=== PATIENT | male | born 1945 | race Caucasian/White ===

== ENCOUNTER 2016-09-26 23:45 | Inpatient (IN) | payer MEDICARE ==
--- NOTE | ~2016-09-26 | DS ---
Discharge Summary [facility] [address] [place]. [address] NAME: LAINE GORDILLO : 43 STATUS : DIS IN PAT#: [id number] AGE: 70 ADM/REG DATE : 09/27/16 MR#: [id number] REPORT SERV DATE: 10/02/16 DICTATED BY: NADINE GOODE DATE: 10/02/16 REPORT STATUS : Draft TRANSCRIBED BY: MODL DATE: 10/02/16 ADMISSION DATE: 09/27/2016 DISCHARGE DATE: 10/02/2016 DIAGNOSES ON DISCHARGE: 1. Hepatic encephalopathy, present on admission, resolved. 2. Alcoholic cirrhosis with jaundice, currently stable. 3. Hyponatremia, resolved. 4. Acute kidney injury, present on admission, resolved. 5. Urinary tract infection, treated. 6. Chronically elevated bilirubin secondary to liver cirrhosis, liver disease. 7. Thrombocytopenia secondary to liver cirrhosis. 8. Supratherapeutic INR secondary to liver disease. 9. Over-suppressed hypothyroidism. Dose of Synthroid decreased, needs to check TSH in four weeks per Dr. Taylor. 10.Urinary tract infection, treated. CONSULTANTS ON THE CASE: Dr. Corbin. HOSPITAL COURSE: The patient was admitted by Dr. Alvarado on 09/27/2016. Subsequently was seen by nurse practitioner, Markie Fitch. Please see the interim discharge summary dictated by Markie Fitch on 10/01/2016. I saw the patient on the last on the day of discharge, and I spoke with Dr. Corbin by phone as well as with his nurse practitioner, who saw the patient also today. They recommended the patient to be discharged today and they said that he will have outpatient HIDA scan as well as he recommended the patient to be on Demadex and spironolactone and also because of his elevated INR secondary to liver failure, he recommended to give one dose of vitamin K today. Overall, the patient does not have any bleeding. He had low alpha-fetoprotein and his hepatitis panel was negative. The patient was recommended to avoid nonsteroid anti- inflammatories, to avoid Tylenol. He was recommended to be on a low sodium 2 g diet with 60 g of protein, and he was also recommended to have reports analyst consultation, which was also done while he was inpatient. The patient had appointment scheduled with Dr. Corbin in four weeks as well as he needs to see Dr. Taylor next week. He needs to check his TSH in four weeks per Dr. Tyalor since we decreased his Synthroid dose because his TSH was over- suppressed. DISCHARGE MEDICATIONS: Carvedilol 3.125 p.o. b.i.d.; levothyroxine, dose decreased to 150 mcg a day; lactulose 30 mL p.o. daily, prescription was given; magnesium oxide 800 p.o. daily. The patient was recommended to discontinue pravastatin by Dr. Corbin. I personally discussed with him about it and Dr. Corbin recommended to stop pravastatin because of liver disease. Spironolactone 50 mg a day. The patient was recommended to take Demadex 20 mg daily, and Lasix was discontinued as well as potassium was discontinued. Continue Robitussin q.4 hours p.r.n. Imodium as needed for diarrhea. The patient does not have diarrhea anymore. Meclizine 12.5 p.o. three times daily p.r.n. Eyedrops to be continued as at home. The patient was discharged in stable condition. Prescription was given for Discharge Summary [address] [address] NAME: LAINE GORDILLO : 43 STATUS : DIS IN PAT#: [id number] AGE: 70 ADM/REG DATE : 09/27/16 MR#: [id number] REPORT SERV DATE: 10/02/16 DICTATED BY: NADINE GOODE DATE: 10/02/16 REPORT STATUS : Draft TRANSCRIBED BY: MODL DATE: 10/02/16 Demadex, spironolactone, and lactulose. The patient was discharged in stable condition. I spent 45 minutes on discharge. DICTATED BY: Rudolph Smith/ROXANNA Nadine Goode M.D. / [id number] CC: Rudolph Smith M.D. Alan Shikoh, M.D.
--- NOTE | ~2016-09-26 | HP ---
History And Physical [place] [address] [facility] [place]. [address] NAME: LAINE GORDILLO : 43 STATUS : ADM IN [facility]#: [id number] AGE: 70 ADM/REG DATE : 09/27/16 MR#: [id number] REPORT SERV DATE: 09/27/16 DICTATED BY: ALESHIA LUI DATE: 09/27/16 REPORT STATUS : Draft TRANSCRIBED BY: MODL DATE: 09/27/16 DATE OF ADMISSION: 09/27/2016 CHIEF COMPLAINT: A 70-year-old male with underlying cirrhosis, now presenting with lethargy, confusion, and diarrhea. HISTORY OF PRESENT ILLNESS: The patient's history was obtained through an interview with the patient, , and son, coupled with review of [facility] medical records. The patient states he started to "feel bad" on about September 22. Over the last weekend, he has been staying in bed and then this week, he has become increasingly incoherent, lethargic, and overtly confused at times. He has been uncoordinated with his arms, unsteady in his gait, and just complains of having lack of energy. He feels "weak all over." His only pain complaint has been a soreness in his lower back without radiation, a 4/10 severity, although he also has had some soreness milder in his legs with attempts to ambulate. No abdominal pain. No chest pain. No headache. He does admit to recent onset of diarrhea, maybe four or five bowel movements a day. He does not recall having recent antibiotics. About two weeks ago, he was diagnosed with a "cold." He had sinus drainage, nonproductive cough, but these seemed to have improved. He has no current shortness of breath or chest pain. No fevers, no chills. He also has noticed difficulty with urination. He notices a foul urine odor, dysuria, urinary frequency, and loss of urine continence at times. REVIEW OF SYSTEMS: Otherwise, a 14-point review of systems was obtained and was negative. PAST MEDICAL HISTORY: 1. Cirrhosis thought to be from fatty liver disease and alcoholism (he has quit alcohol two years ago). 2. Obstructive sleep apnea, on CPAP. 3. Portal vein thrombus(?). 4. Varices, seen by Dr. Corbin. 5. Hypothyroidism. 6. Splenomegaly. 7. Systolic congestive heart failure. Ejection fraction 45% in 2003. PAST SURGICAL HISTORY: Right knee surgery. ALLERGIES: CODEINE. History And Physical [address] [place]. [address] NAME: LAINE GORDILLO : 43 STATUS : ADM IN [facility]#: [id number] AGE: 70 ADM/REG DATE : 09/27/16 MR#: [id number] REPORT SERV DATE: 09/27/16 DICTATED BY: ALESHIA LUI DATE: 09/27/16 REPORT STATUS : Draft TRANSCRIBED BY: ROXANNA DATE: 09/27/16 SOCIAL HISTORY: He is . He has one son. Quit alcohol 2 years ago. He still smokes cigarettes. 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 FAMILY HISTORY: Father with CABG. No family history of cirrhosis known. CURRENT MEDICATIONS: Include Coreg 3.125 mg p.o. b.i.d., Lasix 40 mg p.o. b.i.d., guaifenesin, Synthroid 200 mcg p.o. daily, loperamide, magnesium, meclizine, eyedrops, potassium 20 mEq p.o. b.i.d., Pravachol 20 mg p.o. daily, Aldactone 25 mg p.o. b.i.d. PHYSICAL EXAMINATION: VITAL SIGNS: Temperature 99.2, pulse 83, blood pressure 99/54, respiratory rate 22, O2 saturation 88% on room air. GENERAL: A pleasant, cooperative male. He does seem lethargic and a bit confused but when questioned, he is oriented x3 and seems to be aware of his recent history. HEENT: Pupils equal, round, and reactive to light. No conjunctival pallor. No scleral icterus. Nares are patent. Oropharynx is clear of obstruction. Dry mucous membranes. NECK: Trachea midline. No thyromegaly. LYMPH: No cervical lymphadenopathy. No supraclavicular lymphadenopathy. RESPIRATORY: Clear to auscultation at bases. No wheezes, no rales, no rhonchi. A normal respiratory effort. CARDIOVASCULAR: Regular rate and rhythm. No murmurs, rubs, or gallops. The patient does have chronic appearing lower extremity edema but it is currently nonpitting and symmetrical. ABDOMEN: Distended by exam. I do not appreciate a fluid wave though. It is nontender throughout. It seems that the patient has a palpable spleen in the left upper quadrant that is nontender. No hepatomegaly though is appreciated by exam. DERMATOLOGICAL: The patient has a kind of pallor to his skin and kind of grayish discoloration as well. There are no cyanotic changes. He has cool, dry extremities. PSYCHIATRIC: A flat affect, but he claims to be in a good mood although sometimes he is very slow in his responses and lethargic. He is oriented x3. LABORATORY DATA: Ammonia level 55, lactic acid 3.5, albumin 1.6, AST 82, ALT 38, alkaline phosphatase 114, total bilirubin 8.7. White blood cell count 11.3, hemoglobin 11, hematocrit 30, platelets 52, MCV 118. Sodium 129, potassium 6.1, chloride 102, bicarb 20, BUN 30, creatinine 1.73 from baseline creatinine of 0.86, glucose 116. Urinalysis does show large leukocyte esterase, greater than 182 white blood cells, 14 hyaline casts, and also some granular casts. STUDIES: 1. Chest x-ray by my own evaluation shows shallow inspiratory effort. Mild atelectasis, but no acute abnormality. 2. EKG by my own evaluation shows sinus rhythm, intraventricular conduction defect. No spiked or elevated T-waves. Overall, the EKG is stable compared to February 2016. 3. A CT scan of the abdomen and pelvis shows splenomegaly, cholelithiasis, cirrhosis, chronic portal vein thrombosis. 4. A CT scan of the brain without contrast shows no acute intracranial process. History And Physical [address] [address] NAME: LAINE GORDILLO : 43 STATUS : ADM IN [facility]#: [id number] AGE: 70 ADM/REG DATE : 09/27/16 MR#: [id number] REPORT SERV DATE: 09/27/16 DICTATED BY: ALESHIA LUI DATE: 09/27/16 REPORT STATUS : Draft TRANSCRIBED BY: MODAna Rosa DATE: 09/27/16 ASSESSMENT AND PLAN: 1. Hepatic encephalopathy. Try lactulose. 2. Urinary tract infection. Check urine culture. Placed on IV antibiotics. 3. Diarrhea. Check C. difficile toxin. Start empiric p.o. Vancocin. 4. Acute kidney injury. Placed on IV fluids, IV albumin. 5. Lactic acidosis. Provide supportive care. Monitor closely. 6. Cirrhosis thought to be from fatty liver disease and alcoholism. He has been abstinent from alcohol for two years, but there is also a question of chronic portal vein thrombosis(?). 7. Obstructive sleep apnea, on CPAP. KPL/MODL Aleshia Lui M.D. / [id number] CC: MD Micheal Otero M.D.
--- NOTE | ~2016-09-26 | IDS ---
Interim Discharge Summary [facility] [address] [place]. [address] NAME: LAINE GORDILLO : 43 STATUS : ADM IN [facility]#: [id number] AGE: 70 ADM/REG DATE : 09/27/16 MR#: [id number] REPORT SERV DATE: 10/02/16 DICTATED BY: MARKIE LEDESMA DATE: 10/01/16 REPORT STATUS : Draft TRANSCRIBED BY: MODL DATE: 10/01/16 ADMISSION DATE: 09/27/2016 DISCHARGE DATE: CURRENT INTERIM DIAGNOSES: List includes: 1. Hepatic encephalopathy with jaundice related to alcoholic cirrhosis. 2. Hyponatremia, resolving. 3. Acute kidney injury, resolved. 4. Urinary tract infection, Escherichia coli, treated, off antibiotics now. 5. Elevated bilirubin, most recently 10.5. 6. Thrombocytopenia. 7. Anemia. 8. Supratherapeutic INR. 9. Hypothyroidism, most recent TSH is 0.065. Synthroid dosage was decreased during this admission. HISTORY OF PRESENT ILLNESS: This is a 70-year-old male, who presented with lethargy, confusion, and diarrhea. Please see initial H and P of Dr. Eduard Alvarado. This patient was admitted to the Hospitalist Service for further evaluation and treatment. Lab work was ordered and followed. He was started on lactulose for elevated ammonia. Empiric Vancocin was also started, as the patient was having diarrhea and he was also placed on empiric antibiotic therapy initially for urinary tract infection. PROCEDURES AND IMAGING DURING THIS ADMISSION: Include a CT of the abdomen and pelvis that showed liver cirrhosis pattern, extensive varices about the spleen, lower thoracic, esophagus, and GE junction. Cholelithiasis with mild diffuse gallbladder wall thickening and surrounding ascites. Diverticulosis, but no diverticulitis. CT of the brain showing no acute pathology. An echocardiogram showed an ejection fraction of 40% with some mild mitral regurg and mild tricuspid regurg. CONTINUATION OF HOSPITAL COURSE: I began seeing the patient on 09/27/2016, where his kidney function had begun to improve with creatinine falling from 1.73 to 1.49. He was continued on IV antibiotics of Rocephin. His hyponatremia had begun to resolve. His hyperkalemia had began to resolve as well, and his Synthroid dosage was adjusted on this date with the TSH being low. His ammonia labs were followed closely with adjustments in his lactulose during this admission. The urinary culture came back showing E coli, and he was placed on Levaquin, which he has completed. He had the above-described imaging that was reviewed. After his acute kidney injury resolved, he was placed back on Demadex diuretic given the fact that his albumin is quite low at 1.9 and he does have lower extremity edema. He has tolerated this well. His diarrhea has slowed and is manageable, and he is continued on his lactulose again with following ammonia levels. In review, his bilirubin has been quite elevated during this admission and has continued to slowly climb. A consult was placed to GI for review and further recommendations, and Dr. Corbin saw the patient and added spironolactone, hepatitis panel, and we will follow up with him as outpatient. Does not feel like a HIDA scan at this time is warranted. Of note, the patient has been relatively asymptomatic despite being quite jaundiced and the bilirubin elevation, but he has not had Interim Discharge Summary [address] [address] NAME: LAINE GORDILLO : 43 STATUS : ADM IN PAT#: [id number] AGE: 70 ADM/REG DATE : 09/27/16 MR#: [id number] REPORT SERV DATE: 10/02/16 DICTATED BY: MARKIE LEDESMA DATE: 10/01/16 REPORT STATUS : Draft TRANSCRIBED BY: MODL DATE: 10/01/16 any significant abdominal pain, nausea, vomiting, and has been eating and drinking. [facility] and likely will be able to be discharged on 10/02/2016 at this point, and appreciate the strategic solutions consultant's help with Dr. Corbin in particular in this case. [facility] – ADA/MODL Markie Ledesma NP / [id number] CC: MD Micheal Otero M.D.
--- NOTE | ~2016-09-26 | CN ---
Consultation Report [facility] [address] [place]. [address] NAME: LAINE GORDILLO : 43 STATUS : ADM IN PAT#: [id number] AGE: 70 ADM/REG DATE : 09/27/16 MR#: [id number] REPORT SERV DATE: 10/01/16 DICTATED BY: DOM PALAFOX DATE: 09/30/16 REPORT STATUS : Draft TRANSCRIBED BY: MODAna Rosa DATE: 09/30/16 DATE OF CONSULTATION: 09/30/2016 HISTORY OF PRESENT ILLNESS: I am asked to see this gentleman in the absence of Dr. Corbin for jaundice. This 70-year-old gentleman apparently has a history of cirrhosis secondary to alcohol and fatty liver. Recent complaints have included increasing weakness and fatigue, as well as diarrhea. He denies any severe abdominal pain, nausea, vomiting, or blood in the stool. Family reports that his gait has been unsteady and he has been complaining of weakness and fatigue. He denies chills or fever. REVIEW OF SYSTEMS: GENERAL: Otherwise negative except for urinary frequency. MEDICATIONS: Include Coreg, Lasix, Synthroid, Imodium, Pravachol, and Aldactone. PHYSICAL EXAMINATION: VITAL SIGNS: Afebrile with normal vital signs. CHEST: Clear. CARDIAC: Regular rhythm without rubs or murmurs. ABDOMEN: Soft with minimal tenderness. Bowel sounds normal. No palpable masses. LABORATORY DATA: Lab work has shown total bilirubin of 8.7. White count is normal at 11.3. MCV 118. Platelets 52,000. Potassium 6.1. BUN 30, creatinine 1.73. CT of the abdomen has shown splenomegaly, cirrhosis, and chronic portal vein thrombosis. CT of the head is unremarkable. IMPRESSION: 1. Hepatic encephalopathy, likely causes would be urinary tract infection. White cells greater than 182 per urinalysis. He is being treated for this. 2. History of cirrhosis. 3. Diarrhea. He has already been started on vancomycin. PLAN: We will check alpha-fetoprotein level. Dr. Corbin will follow in the next 24 hours. Thank you for allowing me to see this gentleman. CATHY/ROXANNA Dom Palafox M.D. Consultation Report [address] [place]. [address] NAME: LAINE GORDILLO : 43 STATUS : ADM IN PAT#: [id number] AGE: 70 ADM/REG DATE : 09/27/16 MR#: [id number] REPORT SERV DATE: 10/01/16 DICTATED BY: DOM PALAFOX DATE: 09/30/16 REPORT STATUS : Draft TRANSCRIBED BY: ROXANNA DATE: 09/30/16 / [id number] CC: MD Micheal Otero M.D.
[~2016-09-26 23:45] MED LIST: ASA5GR PO; ASAB PO; COR20 PO; COREG3 PO; KLOR-CON20 MEQ PO; L40 PO; LEVOTHYROXIN200 MCG PO; PCET PO; PRAVAC PO; PRILOSEC40 MG PO; SPIRO25 PO; SYN125 PO; SYNTHROID200 MCG PO
[2016-09-27 01:28] LABS: BASOPHILS 0.3 %; BASOPHILS ABSOLUTE 0.03 10/3/uL (0.0-0.16); EOSINOPHILS 0.4 %; EOSINOPHILS ABSOLUTE 0.04 10/3/uL (0.0-0.53); ER CBC TAT 0 Hrs 09 Mins; HEMATOCRIT 30.1 % (40.0-51.0); HEMOGLOBIN 10.6 g/dL (13.6-17.8); IMMATURE GRANULOCYTES 0.5 %; IMMATURE GRANULOCYTES ABSOLUTE 0.06 10/3/uL (0.0-0.11); LYMPHOCYTES 5.1 %; LYMPHOCYTES ABSOLUTE 0.58 10/3/uL (0.67-4.30); MANUAL DIFF NO %; MEAN CORPUS HGB CONC 35.2 g/dL (32.0-36.0); MEAN CORPUSCULAR HEMOGLOB 41.6 pg (26.0-34.0); MEAN PLATELET VOLUME 10.7 fL (9.2-13.0); MONOCYTES 14.8 %; MONOCYTES ABSOLUTE 1.68 10/3/uL (0.21-1.20); NEUTROPHILS 78.9 %; NEUTROPHILS ABSOLUTE 8.93 10/3/uL (2.02-8.40); PLATELET COUNT 52 10/3/uL (150-400); RBC DISTRIBUTION WIDTH 16.4 % (12.0-16.0); RED CELL COUNT 2.55 10/6/uL (4.7-6.1); WHITE BLOOD CELLS 11.3 10/3/uL (4.5-10.5)
[2016-09-27 01:33] LABS: INTERNATIONAL NORMAL RATI 2.8 UNITS (-); PARTIAL THROMBO TIME 46.8 SEC (22.5-37.2)
[2016-09-27 01:39] LABS: PROTIME (NOT ORD) 29.6 SEC (12.0-14.5)
[2016-09-27 01:42] LABS: LACTATE 3.5 MMOL/L (0.3-2.4)
[2016-09-27 01:47] LABS: A/G RATIO 0.3 (0.7-1.9); ALBUMIN 1.6 G/DL (3.5-5.0); CALCIUM, SERUM 7.9 MG/DL (8.5-10.4); CHLORIDE, SERUM 102 MMOL/L (96-112); CO2 (CARBON DIOXIDE) 20 MMOL/L (24-34); GLOBULIN 4.7 G/DL (2.5-4.1); SGPT(ALT) 38 U/L (5-65); TOTAL PROTEIN 6.3 G/DL (6.0-8.5)
[2016-09-27 01:49] LABS: SODIUM, SERUM 129 MMOL/L (135-148)
[2016-09-27 01:50] LABS: ALKALINE PHOSPHATASE 114 U/L (45-117); BUN (BLOOD UREA NITROGEN) 30 MG/DL (6-23); CREATININE 1.73 MG/DL (0.70-1.30); GFR AFRICAN AMERICAN 45 ML/MIN (>=60); GFR NON AFRICAN AMERICAN 39 ML/MIN (>=60); GLUCOSE, SERUM 116 MG/DL (60-99); POTASSIUM, SERUM 6.1 MMOL/L (3.5-5.3); SGOT(AST) 82 U/L (5-40); TOTAL BILIRUBIN 8.7 MG/DL (0-1.2); ULTRASENSITIVE TSH 0.079 MCIU/ML (0.358-3.740)
[2016-09-27 01:57] LABS: PLATELET ESTIMATE DEC (ADEQUATE)
[2016-09-27 01:59] LABS: POLYCHROMASIA 1+ (2-5/OIF) (0-1/OIF)
[2016-09-27 02:00] LABS: ASCORBIC ACID (UR NOT ORDER) NEG (NEG); BILIRUBIN, URINE MODERATE (NEG); ER URINALYSIS TAT 0 Hrs 16 Mins; KETONE, URINE NEGATIVE (NEG); LEUKOCYTE ESTERASE(NOT OR MOD (NEG); NITRITE (URINE) NEG (NEG)
[2016-09-27 02:01] LABS: WBC (NOT ORDERED) (RFLEX) > 182 (0-5)
[2016-09-27] MEDS ORDERED: L40 PO (02:40)
[2016-09-27] MEDS ORDERED: SPIRO25 PO (02:40)
[2016-09-27] MEDS ORDERED: KDUR20 PO (02:40)
[2016-09-27] MEDS ORDERED: ILEVRO1.7 ML OPH (02:41)
[2016-09-27] MEDS ORDERED: IMOD PO (02:42)
[2016-09-27] MEDS ORDERED: SYNTHROID200 MCG PO (02:42)
[2016-09-27] MEDS ORDERED: COREG3 PO (02:42)
[2016-09-27] MEDS ORDERED: GGDM5ML PO (02:42)
[2016-09-27] MEDS ORDERED: BESIFLOXACIN 0.6% OPH (02:42)
[2016-09-27] MEDS ORDERED: PRAVAC PO (02:43)
[2016-09-27] MEDS ORDERED: MCZ125 PO (02:43)
[2016-09-27] MEDS ORDERED: MAGOX4 PO (02:44)
[2016-09-27 14:39] LABS: HEMOGLOBIN 9.5 g/dL (13.6-17.8); MEAN CORPUS HGB CONC 35.4 g/dL (32.0-36.0); MEAN CORPUSCULAR VOLUME 118.6 fL (80-100); MEAN PLATELET VOLUME 10.3 fL (9.2-13.0); RBC DISTRIBUTION WIDTH 16.3 % (12.0-16.0); RED CELL COUNT 2.26 10/6/uL (4.7-6.1); WHITE BLOOD CELLS 10.1 10/3/uL (4.5-10.5)
[2016-09-27 14:41] LABS: HEMATOCRIT 26.8 % (40.0-51.0); PLATELET COUNT 41 10/3/uL (150-400)
[2016-09-27 14:42] LABS: MANUAL DIFF YES %
[2016-09-27 14:46] LABS: INTERNATIONAL NORMAL RATI 3.1 UNITS (-); PARTIAL THROMBO TIME 46.2 SEC (22.5-37.2); PROTIME (NOT ORD) 31.4 SEC (12.0-14.5)
[2016-09-27 15:00] LABS: B NATRIURETIC PEPTIDE (BNP) 172.5 PG/ML (< 100.0)
[2016-09-27 15:02] LABS: A/G RATIO 0.5 (0.7-1.9); ALBUMIN 1.9 G/DL (3.5-5.0); BUN (BLOOD UREA NITROGEN) 32 MG/DL (6-23); CALCIUM, SERUM 8.1 MG/DL (8.5-10.4); CHLORIDE, SERUM 102 MMOL/L (96-112); CO2 (CARBON DIOXIDE) 22 MMOL/L (24-34); CREATININE 1.49 MG/DL (0.70-1.30); GFR AFRICAN AMERICAN 54 ML/MIN (>=60); GFR NON AFRICAN AMERICAN 47 ML/MIN (>=60); GLOBULIN 4.2 G/DL (2.5-4.1); GLUCOSE, SERUM 121 MG/DL (60-99); POTASSIUM, SERUM 5.3 MMOL/L (3.5-5.3); SGOT(AST) 79 U/L (5-40); SGPT(ALT) 36 U/L (5-65); SODIUM, SERUM 131 MMOL/L (135-148); TOTAL BILIRUBIN 8.8 MG/DL (0-1.2); TOTAL PROTEIN 6.1 G/DL (6.0-8.5); TROPONIN I <0.02 NG/ML (<0.05); ULTRASENSITIVE TSH 0.065 MCIU/ML (0.358-3.740)
[2016-09-27 15:03] LABS: ALKALINE PHOSPHATASE 97 U/L (45-117)
[2016-09-27 15:12] LABS: BAND NEUTROPHILS 48 %; EOSINOPHILS 2 %; LYMPHOCYTES 4 %; MONOCYTES 5 %; MONOCYTES ABSOLUTE (CALC) 0.51 10/3/uL (0.21-1.20); NEUTROPHILS ABSOLUTE (CALC) 8.99 10/3/uL (2.02-8.40); SEGMENTED NEUTROPHIL (0) 41 %; TOTAL NUCLEATED CELLS 100
[2016-09-28 07:26] LABS: BASOPHILS 0.2 %; BASOPHILS ABSOLUTE 0.02 10/3/uL (0.0-0.16); EOSINOPHILS 2.4 %; EOSINOPHILS ABSOLUTE 0.22 10/3/uL (0.0-0.53); HEMATOCRIT 26.4 % (40.0-51.0); HEMOGLOBIN 9.4 g/dL (13.6-17.8); IMMATURE GRANULOCYTES 0.4 %; IMMATURE GRANULOCYTES ABSOLUTE 0.04 10/3/uL (0.0-0.11); LYMPHOCYTES 12.3 %; LYMPHOCYTES ABSOLUTE 1.15 10/3/uL (0.67-4.30); MANUAL DIFF NO %; MEAN CORPUS HGB CONC 35.6 g/dL (32.0-36.0); MEAN CORPUSCULAR HEMOGLOB 42.5 pg (26.0-34.0); MEAN CORPUSCULAR VOLUME 119.5 fL (80-100); MEAN PLATELET VOLUME 10.9 fL (9.2-13.0); MONOCYTES 11.4 %; MONOCYTES ABSOLUTE 1.07 10/3/uL (0.21-1.20); NEUTROPHILS 73.3 %; NEUTROPHILS ABSOLUTE 6.86 10/3/uL (2.02-8.40); PLATELET COUNT 36 10/3/uL (150-400); RBC DISTRIBUTION WIDTH 16.3 % (12.0-16.0); RED CELL COUNT 2.21 10/6/uL (4.7-6.1); WHITE BLOOD CELLS 9.4 10/3/uL (4.5-10.5)
[2016-09-28 07:31] LABS: BAND NEUTROPHILS 25 %; LYMPHOCYTES 6 %; LYMPHOCYTES ABSOLUTE (CALC) 0.56 10/3/uL (0.67-4.30); MONOCYTES 9 %; MONOCYTES ABSOLUTE (CALC) 0.85 10/3/uL (0.21-1.20); NEUTROPHILS ABSOLUTE (CALC) 7.99 10/3/uL (2.02-8.40); SEGMENTED NEUTROPHIL (0) 60 %; TOTAL NUCLEATED CELLS 100
[2016-09-28 07:32] LABS: INTERNATIONAL NORMAL RATI 3.3 UNITS (-); POLYCHROMASIA 1+ (2-5/OIF) (0-1/OIF); PROTIME (NOT ORD) 33.3 SEC (12.0-14.5)
[2016-09-28 07:48] LABS: A/G RATIO 0.6 (0.7-1.9); ALBUMIN 2.1 G/DL (3.5-5.0); ALKALINE PHOSPHATASE 86 U/L (45-117); CALCIUM, SERUM 7.9 MG/DL (8.5-10.4); CHLORIDE, SERUM 103 MMOL/L (96-112); CO2 (CARBON DIOXIDE) 23 MMOL/L (24-34); CREATININE 1.49 MG/DL (0.70-1.30); GFR AFRICAN AMERICAN 54 ML/MIN (>=60); GFR NON AFRICAN AMERICAN 47 ML/MIN (>=60); GLOBULIN 3.4 G/DL (2.5-4.1); POTASSIUM, SERUM 4.9 MMOL/L (3.5-5.3); SGOT(AST) 86 U/L (5-40); SGPT(ALT) 39 U/L (5-65); SODIUM, SERUM 132 MMOL/L (135-148); TOTAL PROTEIN 5.5 G/DL (6.0-8.5)
[2016-09-28 07:49] LABS: BUN (BLOOD UREA NITROGEN) 36 MG/DL (6-23); GLUCOSE, SERUM 92 MG/DL (60-99); TOTAL BILIRUBIN 8.1 MG/DL (0-1.2)
[2016-09-28 17:02] LABS: SODIUM, URINE < 5 MEQ/L
[2016-09-29 08:03] LABS: INTERNATIONAL NORMAL RATI 3.1 UNITS (-); PROTIME (NOT ORD) 31.6 SEC (12.0-14.5)
[2016-09-29 08:05] LABS: HEMATOCRIT 26.8 % (40.0-51.0); HEMOGLOBIN 9.6 g/dL (13.6-17.8); MEAN CORPUS HGB CONC 35.8 g/dL (32.0-36.0); MEAN CORPUSCULAR HEMOGLOB 41.9 pg (26.0-34.0); MEAN PLATELET VOLUME 11.7 fL (9.2-13.0); NUCLEATED RED BLOOD CELLS 1.2 /100WBC (0-0); RBC DISTRIBUTION WIDTH 15.9 % (12.0-16.0); RED CELL COUNT 2.29 10/6/uL (4.7-6.1)
[2016-09-29 08:09] LABS: MANUAL DIFF YES %; PLATELET COUNT 46 10/3/uL (150-400)
[2016-09-29 08:10] LABS: BUN (BLOOD UREA NITROGEN) 34 MG/DL (6-23); CHLORIDE, SERUM 102 MMOL/L (96-112); CO2 (CARBON DIOXIDE) 24 MMOL/L (24-34); CREATININE 1.13 MG/DL (0.70-1.30); GFR AFRICAN AMERICAN 75 ML/MIN (>=60); GFR NON AFRICAN AMERICAN 65 ML/MIN (>=60); GLUCOSE, SERUM 89 MG/DL (60-99); SODIUM, SERUM 131 MMOL/L (135-148)
[2016-09-29 08:11] LABS: POTASSIUM, SERUM 5.1 MMOL/L (3.5-5.3)
[2016-09-29 08:33] LABS: BAND NEUTROPHILS 11 %; EOSINOPHILS 4 %; EOSINOPHILS ABSOLUTE (CALC) 0.36 10/3/uL (0.0-0.53); IMMATURE GRANS ABSOLUTE (CALC) 0.09 10/3/uL (0.0-0.11); LYMPHOCYTES 5 %; LYMPHOCYTES ABSOLUTE (CALC) 0.45 10/3/uL (0.67-4.30); METAMYELOCYTES 1 %; MONOCYTES 15 %; MONOCYTES ABSOLUTE (CALC) 1.35 10/3/uL (0.21-1.20); NEUTROPHILS ABSOLUTE (CALC) 6.75 10/3/uL (2.02-8.40); POLYCHROMASIA 1+ (2-5/OIF) (0-1/OIF); SEGMENTED NEUTROPHIL (0) 64 %; TOTAL NUCLEATED CELLS 100
[2016-09-29 08:34] LABS: TOXIC GRANULATION 1+; VACUOLATED NEUTROPHILES 1+
[2016-09-29 10:47] LABS: FOLATE 6.7 NG/ML (>5.2)
[2016-09-30 06:15] LABS: BASOPHILS 0.5 %; BASOPHILS ABSOLUTE 0.04 10/3/uL (0.0-0.16); EOSINOPHILS 4.6 %; EOSINOPHILS ABSOLUTE 0.37 10/3/uL (0.0-0.53); HEMATOCRIT 28.2 % (40.0-51.0); IMMATURE GRANULOCYTES 0.4 %; IMMATURE GRANULOCYTES ABSOLUTE 0.03 10/3/uL (0.0-0.11); LYMPHOCYTES 14.7 %; LYMPHOCYTES ABSOLUTE 1.19 10/3/uL (0.67-4.30); MANUAL DIFF NO %; MEAN CORPUS HGB CONC 35.5 g/dL (32.0-36.0); MEAN CORPUSCULAR HEMOGLOB 41.7 pg (26.0-34.0); MEAN CORPUSCULAR VOLUME 117.5 fL (80-100); MEAN PLATELET VOLUME 10.5 fL (9.2-13.0); MONOCYTES 16.5 %; MONOCYTES ABSOLUTE 1.33 10/3/uL (0.21-1.20); NEUTROPHILS 63.3 %; NEUTROPHILS ABSOLUTE 5.12 10/3/uL (2.02-8.40); PLATELET COUNT 40 10/3/uL (150-400); RBC DISTRIBUTION WIDTH 15.6 % (12.0-16.0); WHITE BLOOD CELLS 8.1 10/3/uL (4.5-10.5)
[2016-09-30 06:19] LABS: PROTIME (NOT ORD) 30.9 SEC (12.0-14.5)
[2016-09-30 06:30] LABS: A/G RATIO 0.5 (0.7-1.9); ALBUMIN 1.9 G/DL (3.5-5.0); ALKALINE PHOSPHATASE 103 U/L (45-117); BUN (BLOOD UREA NITROGEN) 31 MG/DL (6-23); CALCIUM, SERUM 8.1 MG/DL (8.5-10.4); CHLORIDE, SERUM 102 MMOL/L (96-112); CO2 (CARBON DIOXIDE) 24 MMOL/L (24-34); CREATININE 0.97 MG/DL (0.70-1.30); GFR AFRICAN AMERICAN 91 ML/MIN (>=60); GFR NON AFRICAN AMERICAN 78 ML/MIN (>=60); GLUCOSE, SERUM 83 MG/DL (60-99); POTASSIUM, SERUM 4.2 MMOL/L (3.5-5.3); SGOT(AST) 101 U/L (5-40); SGPT(ALT) 42 U/L (5-65); SODIUM, SERUM 132 MMOL/L (135-148); TOTAL BILIRUBIN 9.9 MG/DL (0-1.2); TOTAL PROTEIN 5.9 G/DL (6.0-8.5)
[2016-09-30 07:10] LABS: GIANT PLATELET RARE
[2016-10-01 09:48] LABS: A/G RATIO 0.5 (0.7-1.9); ALBUMIN 1.8 G/DL (3.5-5.0); ALKALINE PHOSPHATASE 97 U/L (45-117); BUN (BLOOD UREA NITROGEN) 31 MG/DL (6-23); CALCIUM, SERUM 8.3 MG/DL (8.5-10.4); CHLORIDE, SERUM 102 MMOL/L (96-112); CO2 (CARBON DIOXIDE) 22 MMOL/L (24-34); CREATININE 1.14 MG/DL (0.70-1.30); GFR AFRICAN AMERICAN 75 ML/MIN (>=60); GFR NON AFRICAN AMERICAN 64 ML/MIN (>=60); GLUCOSE, SERUM 100 MG/DL (60-99); POTASSIUM, SERUM 3.7 MMOL/L (3.5-5.3); SGOT(AST) 97 U/L (5-40); SGPT(ALT) 41 U/L (5-65); SODIUM, SERUM 133 MMOL/L (135-148); TOTAL BILIRUBIN 10.5 MG/DL (0-1.2); TOTAL PROTEIN 5.8 G/DL (6.0-8.5)
[2016-10-02 05:37] LABS: PROTIME (NOT ORD) 30.6 SEC (12.0-14.5)
[2016-10-02 05:41] LABS: BASOPHILS 0.7 %; BASOPHILS ABSOLUTE 0.04 10/3/uL (0.0-0.16); EOSINOPHILS 6.4 %; EOSINOPHILS ABSOLUTE 0.35 10/3/uL (0.0-0.53); HEMATOCRIT 28.2 % (40.0-51.0); HEMOGLOBIN 9.9 g/dL (13.6-17.8); IMMATURE GRANULOCYTES 0.6 %; IMMATURE GRANULOCYTES ABSOLUTE 0.03 10/3/uL (0.0-0.11); LYMPHOCYTES 19.3 %; LYMPHOCYTES ABSOLUTE 1.05 10/3/uL (0.67-4.30); MEAN CORPUS HGB CONC 35.1 g/dL (32.0-36.0); MEAN CORPUSCULAR HEMOGLOB 40.6 pg (26.0-34.0); MEAN CORPUSCULAR VOLUME 115.6 fL (80-100); MEAN PLATELET VOLUME 10.2 fL (9.2-13.0); MONOCYTES 16.5 %; NEUTROPHILS 56.5 %; NEUTROPHILS ABSOLUTE 3.08 10/3/uL (2.02-8.40); RBC DISTRIBUTION WIDTH 15.3 % (12.0-16.0); RED CELL COUNT 2.44 10/6/uL (4.7-6.1); WHITE BLOOD CELLS 5.5 10/3/uL (4.5-10.5)
[2016-10-02 05:42] LABS: MANUAL DIFF NO %; PLATELET COUNT 55 10/3/uL (150-400)
[2016-10-02 05:55] LABS: A/G RATIO 0.4 (0.7-1.9); ALBUMIN 1.8 G/DL (3.5-5.0); ALKALINE PHOSPHATASE 103 U/L (45-117); BUN (BLOOD UREA NITROGEN) 29 MG/DL (6-23); CALCIUM, SERUM 8.1 MG/DL (8.5-10.4); CHLORIDE, SERUM 100 MMOL/L (96-112); CO2 (CARBON DIOXIDE) 25 MMOL/L (24-34); CREATININE 0.96 MG/DL (0.70-1.30); GFR AFRICAN AMERICAN 92 ML/MIN (>=60); GFR NON AFRICAN AMERICAN 79 ML/MIN (>=60); GLOBULIN 4.1 G/DL (2.5-4.1); POTASSIUM, SERUM 3.7 MMOL/L (3.5-5.3); SGOT(AST) 93 U/L (5-40); SGPT(ALT) 40 U/L (5-65); SODIUM, SERUM 133 MMOL/L (135-148); TOTAL PROTEIN 5.9 G/DL (6.0-8.5)
[2016-10-02 05:56] LABS: GLUCOSE, SERUM 71 MG/DL (60-99); TOTAL BILIRUBIN 9.9 MG/DL (0-1.2)
[2016-10-02 06:29] LABS: PLATELET ESTIMATE DEC (ADEQUATE)
[2016-10-02 06:30] LABS: TOXIC GRANULATION 1+
[2016-10-02 10:33] LABS: HEPATITIS B SURFACE ANTIGEN NON-REACTIVE (NON-REACT)
[2016-10-02 10:59] LABS: HEPATITIS C ANTIBODY NON-REACTIVE (NON-REACT)
[2016-10-02 11:00] LABS: HEPATITIS B CORE AB IGM NON-REACTIVE (NON-REAC)
[2016-10-02 11:20] LABS: HEP A ANTIBODY IGM NON-REACTIVE (NON-REACT)
[2016-10-02] MEDS ORDERED: DEMA20 PO (14:45)
[2016-10-02] MEDS ORDERED: SPIRO50 PO (14:46)
[2016-10-02] MEDS ORDERED: GENERLAC PO (14:47)
[2016-10-02] MEDS ORDERED: LEVOTHYROXIN150 MCG PO (14:49)
[2016-11-19] MEDS ORDERED: GENERLAC PO (17:09)
[2016-11-19] MEDS ORDERED: SYN.15 PO (17:10)
[2016-11-19] MEDS ORDERED: SPIRO50 PO (17:15)
[2016-11-19] MEDS ORDERED: DEMA20 PO (17:16)
[2016-11-19] MEDS ORDERED: QUALAQUIN PO (17:17)
[2016-11-19] MEDS ORDERED: MAGOX4 PO (17:18)
[2016-11-19] MEDS ORDERED: ASA5GR PO (17:34)
[2016-11-19] MEDS ORDERED: ICY HOT OINTMENT TOP (17:35)
== END 2016-10-02 16:36 | disposition home health service (06) | DRG 441 ==
LOC: ER 23:45 → CDU1 09-27 06:01 → 1SO 09-27 11:25
PROVIDERS: Internal Medicine; Internal Medicine Gastroenterology; Nurse Practitioner Family; Specialist
DX: K72.90 Hepatic failure, unspecified without coma (principal); I81 Portal vein thrombosis; N17.9 Acute kidney failure, unspecified; E87.1 Hypo-osmolality and hyponatremia; E87.2 Acidosis; I50.22 Chronic systolic (congestive) heart failure; N39.0 Urinary tract infection, site not specified; J98.11 Atelectasis; D69.59 Other secondary thrombocytopenia; K70.30 Alcoholic cirrhosis of liver without ascites; Z68.39 Body mass index [BMI] 39.0-39.9, adult; K75.81 Nonalcoholic steatohepatitis (NASH); E66.9 Obesity, unspecified; K57.30 Diverticulosis of large intestine without perforation or abscess without bleeding; E87.5 Hyperkalemia; I08.1 Rheumatic disorders of both mitral and tricuspid valves; D64.9 Anemia, unspecified; B96.20 Unspecified Escherichia coli [E. coli] as the cause of diseases classified elsewhere; R19.7 Diarrhea, unspecified; K80.20 Calculus of gallbladder without cholecystitis without obstruction; G47.33 Obstructive sleep apnea (adult) (pediatric); F17.210 Nicotine dependence, cigarettes, uncomplicated; E03.9 Hypothyroidism, unspecified; Z79.899 Other long term (current) drug therapy; Z88.5 Allergy status to narcotic agent
CPT/HCPCS: 70450; 71010; 74176; 80048; 80053; 80074; 81001; 82105; 82140; 82272; 82570; 82607; 82728; 82746; 83540; 83605; 83690; 83735; 83880; 84300; 84443; 84484; 85025; 85610; 85730; 87077; 87086; 87186; 87493; 87493-59; 93005; 96374; 96375; 99285; A9270-GY; C8929; J0610; P9047; Q9957